=== PATIENT | female | born 1990 | race African-American/Black ===

== ENCOUNTER → 2018-06-14 | Outpatient (CLI) | payer MEDICAID ==
[2018-06-14 10:57] LABS: Basophils # (auto) 0 uL; Basophils % (auto) 0.3 % (0.0-2.0); Eosinophils # (auto) 0.1 uL; Eosinophils % (auto) 1.1 % (0.0-7.0); Hemoglobin 13.8 g/dL (12.2-16.2); Lymphocytes # (auto) 1.6 uL; Lymphocytes % (auto) 22.1 % (10.0-50.0); Mean Corpuscular Hemoglobin 31.2 pg (28.0-32.0); Mean Corpuscular Hgb Conc. 34.5 g/dL (32.0-36.0); Mean Corpuscular Volume 90.5 fL (80.0-100.0); Monocytes # (auto) 0.5 uL; Monocytes % (auto) 7.2 % (0.0-12.0); Neutrophils # (auto) 5.1 uL; Neutrophils % (auto) 69.3 % (37.0-80.0); Platelet Count (auto) 234 10^3/uL (140-450); Red Blood Cells 4.42 10^6/uL (4.0-5.20); Red Cell Distribution Width 13.7 % (11.8-14.3); White Blood Cell 7.3 10^3/uL (4.4-10.8)
== END | disposition home or self-care (01) ==
LOC: LAB 09:36
PROVIDERS: ATTEND Specialist
DX: Z34.80 Encounter for supervision of other normal pregnancy, unspecified trimester (principal); Z20.2 Contact with and (suspected) exposure to infections with a predominantly sexual mode of transmission; Z3A.00 Weeks of gestation of pregnancy not specified
CPT/HCPCS: 36415; 83036; 85025; 86592; 86703; 86762; 86850; 86900; 86901; 87340

== ENCOUNTER 2018-09-14 09:40 | Observation (INO) | payer MEDICAID ==
[~2018-09-14] VITALS: Ht 170.2 cm; Wt 102.1 kg
[2018-09-14] MEDS ORDERED: PREN-145 OR (10:09)
[2018-09-14] MEDS ORDERED: LACTATED RINGER'S 1,000 ML IV ONE (10:15)
[2018-09-14 11:30] LABS: Albumin 2.7 g/dL (3.4-5.0); Calcium 8.4 mg/dL (8.5-10.1); Potassium 3.3 mmol/L (3.5-5.1)
[2018-09-14 11:33] LABS: BUN/Creatinine Ratio 16.4; Bilirubin, Total 0.5 mg/dL (0.2-1.0); Total Protein 7.1 g/dL (6.4-8.2)
[2018-09-14] MEDS: POTASSIUM CHL 20 Meq TABLET PO ONE (12:19)
== END 2018-09-14 12:40 | disposition home or self-care (01) | DRG 566 ==
LOC: LDRP 09:40
PROVIDERS: ADMIT Specialist; ATTEND Specialist
DX: O99.612 Diseases of the digestive system complicating pregnancy, second trimester (principal); K29.70 Gastritis, unspecified, without bleeding; O21.2 Late vomiting of pregnancy; Z3A.22 22 weeks gestation of pregnancy
CPT/HCPCS: 36415; 59025; 80053; 81002; G0378; 96365; 96366

== ENCOUNTER → 2018-10-23 | Outpatient (CLI) | payer MEDICAID ==
[~2018-10-23] MED LIST: PREN-145 OR
[2018-10-23 10:42] LABS: Basophils # (auto) 0 uL; Basophils % (auto) 0.1 % (0.0-2.0); Eosinophils # (auto) 0.1 uL; Eosinophils % (auto) 0.8 % (0.0-7.0); Hematocrit 37.6 % (36.0-46.0); Hemoglobin 12.6 g/dL (12.2-16.2); Lymphocytes # (auto) 1.5 uL; Lymphocytes % (auto) 16.3 % (10.0-50.0); Mean Corpuscular Hemoglobin 31.6 pg (28.0-32.0); Mean Corpuscular Hgb Conc. 33.6 g/dL (32.0-36.0); Monocytes # (auto) 0.4 uL; Monocytes % (auto) 4.9 % (0.0-12.0); Neutrophils # (auto) 7.1 uL; Neutrophils % (auto) 77.9 % (37.0-80.0); Nucleated Red Blood Cells % 0.1 %; Platelet Count (auto) 266 10^3/uL (140-450); Red Cell Distribution Width 13.5 % (11.8-14.3); White Blood Cell 9.1 10^3/uL (4.4-10.8)
== END | disposition home or self-care (01) ==
LOC: LAB 09:08
PROVIDERS: ATTEND Specialist
DX: O99.810 Abnormal glucose complicating pregnancy (principal); Z3A.00 Weeks of gestation of pregnancy not specified
CPT/HCPCS: 36415; 82951; 83036; 85025

== ENCOUNTER 2018-10-26 17:00 | Observation (INO) | payer MEDICAID | END 2018-10-26 18:40 | disposition home or self-care (01) | DRG 566 | LOC: LDRP 17:00 | PROVIDERS: ADMIT Obstetrics & Gynecology; ATTEND Obstetrics & Gynecology | DX: O46.93 Antepartum hemorrhage, unspecified, third trimester (principal); Z3A.28 28 weeks gestation of pregnancy | CPT/HCPCS: 59025; 76815; 81002; G0378 ==

== ENCOUNTER → 2018-11-14 | Outpatient (CLI) | payer MEDICAID ==
[2018-11-14 15:01] LABS: Alcohol, Urine < 3.0 mg/dL (0-5); Amphetamine Screen, Urine NEGATIVE (NEGATIVE); Barbiturate Scree,Urine NEGATIVE (NEGATIVE); Benzodiazephine Screen, Urine NEGATIVE (NEGATIVE); Cannabinoid Screen, Urine NEGATIVE (NEGATIVE); Cocaine Screen, Urine NEGATIVE (NEGATIVE); Opiate Scree,Urine NEGATIVE (NEGATIVE); Phencyclidine Screen, Urine NEGATIVE (NEGATIVE)
== END | disposition home or self-care (01) ==
LOC: LAB 14:34
PROVIDERS: ATTEND Specialist
DX: Z34.83 Encounter for supervision of other normal pregnancy, third trimester (principal); Z3A.33 33 weeks gestation of pregnancy
CPT/HCPCS: 80307

== ENCOUNTER → 2018-12-07 | Outpatient (CLI) | payer MEDICAID ==
[~2018-12-07] MED LIST changes: +PREN-96 PO
[2018-12-07 08:33] LABS: Basophils # (auto) 0.1 uL; Basophils % (auto) 0.6 % (0.0-2.0); Eosinophils # (auto) 0.1 uL; Eosinophils % (auto) 1.2 % (0.0-7.0); Hematocrit 38.6 % (36.0-46.0); Lymphocytes # (auto) 1.6 uL; Lymphocytes % (auto) 16.9 % (10.0-50.0); Mean Corpuscular Hemoglobin 31.4 pg (28.0-32.0); Mean Corpuscular Hgb Conc. 33.8 g/dL (32.0-36.0); Monocytes # (auto) 0.6 uL; Monocytes % (auto) 6.7 % (0.0-12.0); Neutrophils # (auto) 6.9 uL; Neutrophils % (auto) 74.6 % (37.0-80.0); Platelet Count (auto) 257 10^3/uL (140-450); Red Blood Cells 4.15 10^6/uL (4.0-5.20); Red Cell Distribution Width 13.9 % (11.8-14.3); White Blood Cell 9.3 10^3/uL (4.4-10.8)
== END | disposition home or self-care (01) ==
LOC: LAB 08:18
PROVIDERS: ATTEND Specialist
DX: Z34.80 Encounter for supervision of other normal pregnancy, unspecified trimester (principal); Z3A.36 36 weeks gestation of pregnancy
CPT/HCPCS: 36415; 83036; 85025

== ENCOUNTER 2018-12-24 09:00 | Inpatient (IN) | payer MEDICAID ==
[2018-12-24] VITALS (9 sets, daily range): BP systolic 118–130; BP diastolic 72–88
[~2018-12-24] VITALS: Ht 172.7 cm; Wt 114.8 kg
[~2018-12-24 09:00] MED LIST changes: -PREN-96 PO
[2018-12-24] MEDS ORDERED: LACTATED RINGER'S 1,000 ML IV SCH (09:35)
[2018-12-24 10:31] LABS: Basophils # (auto) 0 uL; Basophils % (auto) 0.2 % (0.0-2.0); Eosinophils # (auto) 0.1 uL; Eosinophils % (auto) 0.8 % (0.0-7.0); Hematocrit 40.4 % (36.0-46.0); Hemoglobin 13.5 g/dL (12.2-16.2); Lymphocytes # (auto) 1.6 uL; Lymphocytes % (auto) 18.2 % (10.0-50.0); Mean Corpuscular Hemoglobin 31.3 pg (28.0-32.0); Mean Corpuscular Hgb Conc. 33.5 g/dL (32.0-36.0); Mean Corpuscular Volume 93.4 fL (80.0-100.0); Monocytes # (auto) 0.6 uL; Monocytes % (auto) 6.5 % (0.0-12.0); Neutrophils # (auto) 6.5 uL; Neutrophils % (auto) 74.3 % (37.0-80.0); Platelet Count (auto) 258 10^3/uL (140-450); Red Blood Cells 4.33 10^6/uL (4.0-5.20); Red Cell Distribution Width 14.2 % (11.8-14.3); White Blood Cell 8.7 10^3/uL (4.4-10.8)
[2018-12-24 10:47] LABS: INR 0.86 (0.9-1.15); Partial Thromboplastin Time 25.5 sec (23.78-33.04); Prothrombin Time 9.3 sec (9.27-12.13)
[2018-12-24 10:50] LABS: Albumin 2.6 g/dL (3.4-5.0); Calcium 8.9 mg/dL (8.5-10.1); Potassium 3.9 mmol/L (3.5-5.1)
[2018-12-24 10:55] LABS: BUN/Creatinine Ratio 13.2; Bilirubin, Total 0.3 mg/dL (0.2-1.0); Total Protein 6.9 g/dL (6.4-8.2)
[2018-12-24 10:57] LABS: Urine Bacteria NONE SEEN /hpf (None Seen); Urine Blood Negative /uL (Negative); Urine Specific Gravity 1.013 (1.001-1.035); Urine WBC 1 /hpf (0 - 5)
[2018-12-24] MEDS ORDERED: MORPHINE SULF(PF) 0.5MG/ML 10ML VIAL ONE (12:11)
[2018-12-24] MEDS ORDERED: fentaNYL CITRATE 100 MCG/2 ML VL ONE (12:11)
[2018-12-24] MEDS ORDERED: SUCCINYLCHOLINE CHLORIDE 20 MG/ML 10ML VIAL IV ONE (12:30)
[2018-12-24] MEDS ORDERED: NALOXONE HCL 0.4 MG/ML VIAL IV PRN (13:45)
[2018-12-24] MEDS ORDERED: ONDANSETRON HCL 4 MG/2 ML VIAL IV PRN ×2 (13:45→14:00)
[2018-12-24] MEDS ORDERED: diphenhdrAMINE HCL 50 MG/1 ML VL IV PRN (13:45)
[2018-12-24] MEDS ORDERED: ceFAZolin 1GM/50ML 50 ML IV SCH (14:00)
[2018-12-24] MEDS ORDERED: HYDROmorphone HCL 2 MG/ML VL IV PRN (14:00)
[2018-12-24] MEDS: LACTATED RINGER'S 1,000 ML IV SCH (14:19)
--- NOTE | 2018-12-24 15:00 | NUR ---
Post Op for LDRP: Received patient from PACU via room 105 AT 1435. REPORT RECEIVED FROM VANNA SANDERSON.. Patient A/A/Ox4, abdominal binder and bilateral SCD's are in place, IV fluids placed on pump and infusing per order, incisional site dressing clean/dry/intact and Ramirez Catheter to gravity draining clear yellow urine. Incentive Spirometer at bedside and instruction on proper use with return demonstration done by patient ON MONITOR IN ROOM 5 NOT WORKING. A BOB MAP MACHINE PLACE IN PATIENT ROOM AND MONITOERING 02 WITH THAT. PATIENT O2 SAT AT 98% AND HEART RATE 68 BPM. REPORT ALSO RECEIVED FROM Len MOCTEZUMA RN
[2018-12-24] MEDS ORDERED: PREN-96 PO (15:24)
--- NOTE | 2018-12-24 16:56 | NUR ---
see flow sheet in centricity for all vitals starting at 1444 hour.
[2018-12-24] MEDS: KETOROLAC TROMETH 30 MG/ML 1ML VIAL IV PRN (17:40)
[2018-12-24] MEDS: ceFAZolin 1GM/50ML 50 ML IV SCH (21:20)
[2018-12-25] VITALS (10 sets, daily range): BP systolic 112–132; BP diastolic 59–87
[2018-12-25] MEDS: KETOROLAC TROMETH 30 MG/ML 1ML VIAL IV PRN ×2 (00:25→06:31)
--- NOTE | 2018-12-25 04:00 | NUR ---
Preparing pt to get up and out of bed, Fundus firm at the umb. vela catheter removed and intact 100 ml's of dark yellow urine emptied. Pt sitting on edge of bed no c/o dizziness at this time. Pt up and ambulating without difficulty. explained the importance of being able to urinate within a six hour time frame pt verbalizes understanding. Pt in bathroom but unable to urinate at this time alissa care instructions given, pt able to return demonstration. Pt up and ambulating in hallway without difficulty, instructed pt to notify staff when pt is ready to go back to bed.
[2018-12-25] MEDS: ceFAZolin 1GM/50ML 50 ML IV SCH ×2 (05:00→12:46)
[2018-12-25] MEDS: LACTATED RINGER'S 1,000 ML IV SCH (06:20)
[2018-12-25 07:16] LABS: Basophils # (auto) 0 uL; Basophils % (auto) 0.2 % (0.0-2.0); Eosinophils # (auto) 0 uL; Eosinophils % (auto) 0.4 % (0.0-7.0); Hematocrit 37.1 % (36.0-46.0); Hemoglobin 12.3 g/dL (12.2-16.2); Lymphocytes # (auto) 0.9 uL; Lymphocytes % (auto) 8.1 % (10.0-50.0); Mean Corpuscular Hgb Conc. 33.2 g/dL (32.0-36.0); Mean Corpuscular Volume 93.2 fL (80.0-100.0); Monocytes # (auto) 0.7 uL; Monocytes % (auto) 6.1 % (0.0-12.0); Neutrophils # (auto) 9.9 uL; Neutrophils % (auto) 85.2 % (37.0-80.0); Nucleated Red Blood Cells % 0.1 %; Platelet Count (auto) 239 10^3/uL (140-450); Red Blood Cells 3.98 10^6/uL (4.0-5.20); Red Cell Distribution Width 14.4 % (11.8-14.3); White Blood Cell 11.6 10^3/uL (4.4-10.8)
[2018-12-25] MEDS ORDERED: HYDROcodone-ACET 5/325MG TAB PO PRN ×2 (08:15)
[2018-12-25] MEDS: DOCUSATE SOD 100 MG CAP PO SCH ×2 (11:20→21:54)
[2018-12-26] MEDS: IBUPROFEN 800 MG TAB PO PRN ×3 (01:52→21:34)
[2018-12-26 03:00] VITALS: BP 111/60
[2018-12-26 06:05] LABS: RPR Non Reactive (Non Reactive)
[2018-12-26 07:30] VITALS: BP 123/82
[2018-12-26] MEDS: DOCUSATE SOD 100 MG CAP PO SCH ×2 (10:35→21:34)
[2018-12-26 11:30] VITALS: BP 134/87
--- NOTE | 2018-12-26 13:49 | NUR ---
Report given to Ke Calixto RN
[2018-12-26 15:00] VITALS: BP 125/89
[2018-12-26 19:30] VITALS: BP 127/81
--- NOTE | 2018-12-26 19:30 | NUR ---
LOWER ABDOMINAL INCISION LOWER ABDOMINAL INCISION CLEAN, DRY AND WELL APPROXIMATED WITH 12 DIANELYS PRESENT AND INTACT. SITE LEFT OPEN TO AIR. Addendum: 12/26/18 at 2248 by Nicol Lizarraga RN Amended: Links added.
[2018-12-26 23:30] VITALS: BP 117/75
[2018-12-27 03:30] VITALS: BP 128/78
--- NOTE | 2018-12-27 04:30 | NUR ---
Discharge: Discharge instructions given as ordered. Pt encouraged to follow up with [facility] TE[facility] as instructed. All questions and concerns addressed. Patient verbalized understanding. Medication reconciliation completed and copy given to patient. All required/requested vaccines given and copies of vaccinations given to patient. Patient encouraged to prepare to depart unit.
[2018-12-27] MEDS: IBUPROFEN 800 MG TAB PO PRN (05:49)
[2018-12-27 06:37] VITALS: BP 127/66
[2018-12-27] MEDS ORDERED: TUBERCULIN PPD 5 UNIT/0.1 ML ID ONE (08:00)
--- NOTE | 2018-12-27 09:30 | NUR ---
Discharge: Patient ambulated to vehicle with all personal belongings, accompanied by staff and family member. No distress noted at time of departure, no adverse changes in status since initial assessment.
== END 2018-12-27 09:30 | disposition home or self-care (01) | DRG 540 ==
LOC: LDRP 09:00 → OBSVTOIN 09:00 → LDRP 23:47
PROVIDERS: ADMIT Specialist; ATTEND Specialist
PROC: 0UL70ZZ Occlusion of Bilateral Fallopian Tubes, Open Approach (ICD-10-PCS; 2018-12-24)
PROC: 10D00Z1 Extraction of Products of Conception, Low, Open Approach (ICD-10-PCS; principal; 2018-12-24 12:30)
DX: O34.211 Maternal care for low transverse scar from previous cesarean delivery (principal); O42.92 Full-term premature rupture of membranes, unspecified as to length of time between rupture and onset of labor; Z37.0 Single live birth; Z3A.37 37 weeks gestation of pregnancy
CPT/HCPCS: 36415; 51702; 59025; 80053; 81001; 85025; 85610; 85730; 86592; 86850; 86900; 86901; 94762; 96361; 96365; 96366; 96375; A4618; G0378; J0330; J0690; J1885

== ENCOUNTER → 2019-03-28 | Outpatient (CLI) | payer MEDICAID, OTHER ==
[~2019-03-28] MED LIST changes: -PREN-145 OR; +PREN-96 PO
== END | disposition home or self-care (01) ==
LOC: LAB 11:44
PROVIDERS: ATTEND Registered Nurse General Practice
DX: Z20.9 Contact with and (suspected) exposure to unspecified communicable disease (principal)
CPT/HCPCS: 86735; 86762; 86765; 86787